=== PATIENT | female | born 1980 | race African-American/Black ===

== ENCOUNTER 2016-10-04 14:59 | Emergency (ER) | payer OTHER ==
[~2016-10-04] VITALS: Ht 160 cm; Wt 69.4 kg
--- NOTE | ~2016-10-04 | EKG ---
[place] [address] [address] [facility] [place] [address] ELECTROCARDIOGRAM REPORT Name: JADE DAVIS [facility] [id number] Admission: 10/04/16 Attend Phys: Discharge: 10/04/16 Date of : 78 Report #: [id number] THIS REPORT FOR: //name// [facility] ED Test Date: 2016-10-04 Test Time: 15:44:28 Pat Name: JADE DAVIS Department: Room: Gender: F [employer]: lisa : 1980 Requested By: Babs Infante Order Number: [id number] MD: Morteza Ogden Measurements Intervals [place] Rate: 74 P: 88 VA: 244 QRS: 58 QRSD: 92 T: 40 QT: 414 QTc: 460 Interpretive Statements Sinus rhythm Prolonged VA interval Consider left ventricular hypertrophy Compared to ECG 07/25/2016 19:45:07 First degree AV block now present T-wave abnormality no longer present Electronically Signed On 10-05-2016 8:40:32 CDT by Morteza Ogden [email or web address] <ELECTRONICALLY SIGNED> By: Morteza Ogden MD, [facility] 10/05/16 0840 1544 1544 Morteza Ogden MD, [facility] /EPI
[~2016-10-04 14:59] MED LIST: ALDOMET250 MG PO; AUGMENTIN 875875 MG PO; BENTYL 20 MG TA20 M1 PO; BENZTROPINE MESY2 MG PO; CARAFATE 11 GM/10 M1 PO; CELEXA 20 MG TA20 M1 PO; CIPROFLOXACIN250 M2 PO; COLACE 100 MG100 MG PO; COZAAR 25 MG TA25 M1 PO; COZAAR 50 MG TA50 MG PO; CYCLOBENZAPRINE; CYMBALTA20 MG PO; CYMBALTA30 MG PO; CYMBALTA60 MG; CYMBALTA60 MG PO; DESYREL150 MG; FLEXERIL PO; HALDOL 0.5 MG0.5 MG PO; HALDOL OR; HALOPERIDOL 5 MG5 MG PO; HYCET 7.5 MG-3473 ML PO; HYDROCODONE-APA1 TA1 PO; HYZAAR 100-251 EACH PO; IBUPROFEN 600600 M1 PO; IRON OR; LISINOPRIL20 MG PO; LISINOPRIL5 MG; METHADOPA; MS CONTIN 30 MG30 M1 PO; MS CONTIN15 MG PO; NEURONTIN 300M300 M2 PO; NEURONTIN600 MG PO; NORCO 5-325 TA1 EACH PO; OXYCODONE; OXYCODONE HCL10 MG; OXYCONTIN20 M1 PO; PENICILLIN V P500 MG PO; PERCOCET 10-321 EACH PO; PHENERGAN 25 MG25 M1 PO; PRENATAL OR; PROMETHAZINE HC25 M1 PO; PROPRANOLOL 1010 M1 PO; PROPRANOLOL 1010 MG PO; PROTONIX40 M1 PO; REGLAN 10 MG TA10 MG PO; TRAMADOL 50 MG50 MG PO; TRANSDERM-SCO1 PATC1 TD; TRAZODONE 150150 M1 PO; TRAZODONE HCL100 MG PO; ULTRAM 50MG TAB50 MG PO; VISTARIL 25 MG25 M1 PO; ZOFRAN ODT4 MG DISSOLVE; ZOFRAN ODT4 MG PO; ZOFRAN ODT8 MG DISSOLVE; ZYRTEC10 MG PO
[2016-10-04 15:31] LABS: ABSOLUTE NEUTROPHILS 6.5 thou/uL (1.4-8.2); BASOPHILS 0.4 % (0.0-2.0); EOSINOPHILS 0.7 % (0.0-3.0); HEMATOCRIT 36.7 % (37.0-47.0); HEMOGLOBIN 12.2 gm/dL (12.0-15.0); LYMPHOCYTES 23.1 % (24.0-44.0); MCH 30.3 pg (26.0-34.0); MCHC 33.1 g/dL (28.0-37.0); MCV 91.4 fL (80.0-100.0); PLATELET COUNT 183 thou/uL (150-400); POLYS 69.8 % (36.0-66.0); RBC 4.01 mil/uL (4.20-5.00); RDW 15.1 % (10.5-14.5); WBC 10.2 thou/uL (4.0-11.0)
[2016-10-04 15:32] LABS: MANUAL DIFF NO
[2016-10-04 15:40] LABS: CALCIUM 9.5 mg/dL (8.5-10.1); CREATININE 0.7 mg/dL (0.6-1.0); POTASSIUM 3.6 mmol/L (3.5-5.1)
[2016-10-04 15:44] LABS: ALBUMIN 3.3 g/dL (3.4-5.0); TOTAL BILIRUBIN 0.6 mg/dL (<0.1-1.0); TOTAL PROTEIN 7.3 g/dL (6.4-8.2)
[2016-10-04 16:18] LABS: URINE BILIRUBIN NEGATIVE (Negative); URINE BLOOD 1+ (Negative); URINE COLOR YELLOW; URINE GLUCOSE-RANDOM* NEGATIVE (Negative); URINE KETONES NEGATIVE (Negative); URINE LEUKOCYTES-REFLEX NEGATIVE (Negative); URINE PROTEIN (DIPSTICK) NEGATIVE (Negative); URINE UROBILINOGEN 0.2 E.U./dl (0.2-1.0)
[2016-10-04 16:22] LABS: CASTS None Seen /LPF (None Seen); CRYSTALS None Seen /LPF (None Seen); SQUAMOUS 0-3 Few /LPF (0-3); URINE RBC 0-2 Rare /HPF (0-2); URINE WBC-REFLEX 0-5 Rare /HPF (0-5)
[2016-10-04 18:00] VITALS: BP 126/79
== END 2016-10-04 18:32 | disposition home or self-care (01) ==
LOC: ER 14:59
PROVIDERS: Physician Assistant
DX: I95.1 Orthostatic hypotension (principal); E86.9 Volume depletion, unspecified; F41.9 Anxiety disorder, unspecified; F32.9 Major depressive disorder, single episode, unspecified; Z90.49 Acquired absence of other specified parts of digestive tract; F43.10 Post-traumatic stress disorder, unspecified; F17.210 Nicotine dependence, cigarettes, uncomplicated

== ENCOUNTER 2017-03-11 18:51 | Emergency (ER) | payer OTHER ==
[~2017-03-11] VITALS: Ht 160 cm; Wt 57.6 kg
[2017-03-11] MEDS ORDERED: ZANAFLEX4 MG PO (19:15)
[2017-03-11] MEDS ORDERED: NEURONTIN 300300 M1 PO (19:15)
[2017-03-11] MEDS ORDERED: PERCOCET 10-321 EACH PO (19:15)
[2017-03-11 19:42] LABS: ABSOLUTE NEUTROPHILS 5.4 thou/uL (1.4-8.2); BASOPHILS 0.8 % (0.0-2.0); EOSINOPHILS 0.7 % (0.0-3.0); HEMATOCRIT 34.9 % (37.0-47.0); HEMOGLOBIN 11.6 gm/dL (12.0-15.0); LYMPHOCYTES 34.1 % (24.0-44.0); MCH 30.3 pg (26.0-34.0); MCHC 33.3 g/dL (28.0-37.0); MONOCYTES 3.5 % (1.0-8.0); PLATELET COUNT 280 thou/uL (150-400); POLYS 60.9 % (36.0-66.0); RBC 3.83 mil/uL (4.20-5.00); RDW 15.5 % (10.5-14.5); WBC 8.9 thou/uL (4.0-11.0)
[2017-03-11 19:43] LABS: URINE BILIRUBIN 1+ (Negative); URINE BLOOD 3+ (Negative); URINE COLOR YELLOW; URINE GLUCOSE-RANDOM* NEGATIVE (Negative); URINE KETONES NEGATIVE (Negative); URINE NITRITE NEGATIVE (Negative); URINE PROTEIN (DIPSTICK) 1+ (Negative); URINE SPECIFIC GRAVITY 1.025 (1.003-1.035)
[2017-03-11 19:52] LABS: SQUAMOUS 4-10 Moderate /LPF (0-3)
[2017-03-11 19:53] LABS: BACTERIA None Seen /HPF (None Seen); CRYSTALS None Seen /LPF (None Seen); URINE RBC >20 Many /HPF (0-2); URINE WBC None Seen /HPF (0-5)
[2017-03-11 19:56] LABS: CALCIUM 9.1 mg/dL (8.5-10.1); CREATININE 0.7 mg/dL (0.6-1.0); POTASSIUM 3.8 mmol/L (3.5-5.1)
[2017-03-11 20:03] LABS: MANUAL DIFF NO
[2017-03-11] MEDS ORDERED: NAPROSYN500 MG PO (20:35)
[2017-03-11 20:40] VITALS: BP 134/87
== END 2017-03-11 20:45 | disposition home or self-care (01) ==
LOC: ER 18:51
PROVIDERS: Nurse Practitioner
DX: N94.6 Dysmenorrhea, unspecified (principal); F32.9 Major depressive disorder, single episode, unspecified; F41.9 Anxiety disorder, unspecified; I10 Essential (primary) hypertension; F43.10 Post-traumatic stress disorder, unspecified; F17.210 Nicotine dependence, cigarettes, uncomplicated; Z90.49 Acquired absence of other specified parts of digestive tract; Z98.890 Other specified postprocedural states; Z87.440 Personal history of urinary (tract) infections

== ENCOUNTER 2018-06-14 16:30 | Emergency (ER) | payer OTHER ==
[~2018-06-14] VITALS: Ht 160 cm; Wt 57.6 kg
[~2018-06-14 16:30] MED LIST changes: +KEFLEX500 M1 PO; +NAPROSYN500 MG PO; +NEURONTIN 300300 M1 PO; +ZANAFLEX4 MG PO
[2018-06-14] MEDS ORDERED: LOPRESSOR50 PO (17:04)
[2018-06-14] MEDS ORDERED: NORCO 5-325 TA1 EACH PO (18:18)
[2018-06-14] MEDS ORDERED: MOBIC7.5 MG PO (18:19)
[2018-06-14] MEDS ORDERED: LOPRESSOR25 PO (18:27)
[2018-06-14 18:35] VITALS: BP 186/100
== END 2018-06-14 18:35 | disposition home or self-care (01) ==
LOC: ER 16:30
DX: G57.11 Meralgia paresthetica, right lower limb (principal); F41.9 Anxiety disorder, unspecified; F32.9 Major depressive disorder, single episode, unspecified; I10 Essential (primary) hypertension; Z90.49 Acquired absence of other specified parts of digestive tract; Z87.442 Personal history of urinary calculi; Z98.890 Other specified postprocedural states

== ENCOUNTER 2018-12-10 20:51 | Emergency (ER) | payer OTHER ==
[~2018-12-10] VITALS: Ht 160 cm; Wt 61.2 kg
[~2018-12-10 20:51] MED LIST changes: +LOPRESSOR25 PO; +LOPRESSOR50 PO; +MOBIC7.5 MG PO
[2018-12-10] MEDS ORDERED: B12INJ IM (21:03)
[2018-12-10] MEDS ORDERED: CYMBALTA30 MG PO (21:04)
[2018-12-10] MEDS ORDERED: IRON325 PO (21:04)
[2018-12-10] MEDS ORDERED: NEURONTIN600 MG PO (21:04)
[2018-12-10] MEDS ORDERED: VITAMIN B-12500 MCG PO (21:05)
[2018-12-10] MEDS ORDERED: UNICOMPLEX M TA1 TA1 PO (21:05)
[2018-12-10] MEDS ORDERED: [UNRECOGNIZED DRUG - REMARK] (21:06)
[2018-12-10 21:42] LABS: URINE BILIRUBIN NEGATIVE (Negative); URINE BLOOD NEGATIVE (Negative); URINE CLARITY CLEAR; URINE COLOR YELLOW; URINE GLUCOSE-RANDOM* NEGATIVE (Negative); URINE KETONES NEGATIVE (Negative); URINE LEUKOCYTES-REFLEX NEGATIVE (Negative); URINE PROTEIN (DIPSTICK) NEGATIVE (Negative); URINE SPECIFIC GRAVITY 1.025 (1.005-1.035)
[2018-12-10 21:44] LABS: URINE NITRITE-REFLEX POSITIVE (Negative)
[2018-12-10 21:53] LABS: BACTERIA-REFLEX >30 Many /HPF (None Seen); CASTS None Seen /LPF (None Seen); CRYSTALS None Seen /LPF (None Seen); SQUAMOUS >10 Many /LPF (0-3); URINE RBC 0-2 Rare /HPF (0-2)
[2018-12-10] MEDS ORDERED: PYRIDIUM200 MG PO (21:58)
[2018-12-10] MEDS ORDERED: KEFLEX500 M1 PO (21:58)
[2018-12-10 22:10] VITALS: BP 157/94
[2018-12-22] MEDS ORDERED: TYLENOL EXTRA500 MG PO (01:44)
[2018-12-22] MEDS ORDERED: PRENATAL COMPL1 EACH PO (03:07)
== END 2018-12-10 22:15 | disposition home or self-care (01) ==
LOC: ER 20:51
PROVIDERS: Emergency Medicine
DX: N39.0 Urinary tract infection, site not specified (principal); I10 Essential (primary) hypertension; F41.9 Anxiety disorder, unspecified; F32.9 Major depressive disorder, single episode, unspecified; Z98.890 Other specified postprocedural states

== ENCOUNTER 2019-01-25 10:19 | Emergency (ER) | payer OTHER ==
[~2019-01-25] VITALS: Ht 157.5 cm; Wt 59.0 kg
[~2019-01-25 10:19] MED LIST changes: +B12INJ IM; +IRON325 PO; +PRENATAL COMPL1 EACH PO; +PYRIDIUM200 MG PO; +TYLENOL EXTRA500 MG PO; +UNICOMPLEX M TA1 TA1 PO; +VITAMIN B-12500 MCG PO; +[UNRECOGNIZED DRUG - REMARK]
[2019-01-25 10:56] LABS: HEMATOCRIT 33.6 % (37.0-47.0); HEMOGLOBIN 11.3 gm/dL (12.0-15.0); MCH 32.2 pg (26.0-34.0); MCHC 33.7 g/dL (28.0-37.0); MCV 95.6 fL (80.0-100.0); RBC 3.52 mil/uL (4.20-5.00); RDW 13.5 % (10.5-14.5); WBC 10.4 thou/uL (4.0-11.0)
[2019-01-25 11:04] LABS: CALCIUM 9.1 mg/dL (8.5-10.1); CREATININE 0.9 mg/dL (0.6-1.0); POTASSIUM 3.2 mmol/L (3.5-5.1)
[2019-01-25 13:01] VITALS: BP 121/79
[2019-01-25] MEDS ORDERED: NORCO 5-325 TA1 EAC1 PO (13:02)
[2019-01-25] MEDS ORDERED: ONDANSETRON HCL4 M2 PO (13:02)
== END 2019-01-25 13:10 | disposition home or self-care (01) ==
LOC: ER 10:19
PROVIDERS: Emergency Medicine
DX: O03.9 Complete or unspecified spontaneous abortion without complication (principal); F41.9 Anxiety disorder, unspecified; F32.9 Major depressive disorder, single episode, unspecified; Z98.84 Bariatric surgery status; Z87.440 Personal history of urinary (tract) infections; Z87.442 Personal history of urinary calculi; Z90.49 Acquired absence of other specified parts of digestive tract; Z98.890 Other specified postprocedural states; Z3A.01 Less than 8 weeks gestation of pregnancy

== ENCOUNTER 2019-04-19 01:47 | Emergency (ER) | payer OTHER ==
[~2019-04-19] VITALS: Ht 157.5 cm; Wt 59.0 kg
[~2019-04-19 01:47] MED LIST changes: +NORCO 5-325 TA1 EAC1 PO; +ONDANSETRON HCL4 M2 PO
[2019-04-19 02:45] LABS: ABSOLUTE NEUTROPHILS 10.6 thou/uL (1.4-8.2); BASOPHILS 0.6 % (0.0-2.0); EOSINOPHILS 0.6 % (0.0-3.0); HEMATOCRIT 30.2 % (37.0-47.0); HEMOGLOBIN 9.4 gm/dL (12.0-15.0); LYMPHOCYTES 11.4 % (24.0-44.0); MCHC 31.2 g/dL (28.0-37.0); MCV 86.6 fL (80.0-100.0); MONOCYTES 5.9 % (1.0-8.0); PLATELET COUNT 228 thou/uL (150-400); POLYS 81.5 % (36.0-66.0); RBC 3.49 mil/uL (4.20-5.00); RDW 17.7 % (10.5-14.5); WBC 13.1 thou/uL (4.0-11.0)
[2019-04-19 02:48] LABS: ANION GAP 9 mmol/L (7-16); BUN 8 mg/dL (7-18); CALCIUM 8.6 mg/dL (8.5-10.1); CHLORIDE 106 mmol/L (98-107); CO2 26 mmol/L (21-32); CREATININE 0.9 mg/dL (0.6-1.0); GLUCOSE 92 mg/dL (74-106); POTASSIUM 3.5 mmol/L (3.5-5.1); SODIUM 141 mmol/L (136-145)
[2019-04-19 03:02] LABS: ALBUMIN 3.4 g/dL (3.4-5.0); DIRECT BILIRUBIN < 0.1 mg/dL (<0.1-0.3); LIPASE 103 U/L (73-393); SGOT 17 U/L (15-37); SGPT 11 U/L (30-65); TOTAL BILIRUBIN 0.2 mg/dL (<0.1-1.0); TOTAL PROTEIN 7.3 g/dL (6.4-8.2)
[2019-04-19 03:22] LABS: URINE BILIRUBIN NEGATIVE (Negative); URINE BLOOD NEGATIVE (Negative); URINE CLARITY SL CLOUDY; URINE COLOR YELLOW; URINE GLUCOSE-RANDOM* NEGATIVE (Negative); URINE KETONES NEGATIVE (Negative); URINE LEUKOCYTES-REFLEX NEGATIVE (Negative); URINE NITRITE-REFLEX NEGATIVE (Negative); URINE PROTEIN (DIPSTICK) NEGATIVE (Negative); URINE SPECIFIC GRAVITY 1.015 (1.005-1.035); URINE UROBILINOGEN 0.2 E.U./dl (0.2-1.0)
[2019-04-19] MEDS ORDERED: BENTYL 20 MG TA20 M1 PO (05:17)
[2019-04-19 05:36] VITALS: BP 182/103
== END 2019-04-19 05:30 | disposition home or self-care (01) ==
LOC: ER 01:47
PROVIDERS: Emergency Medicine
DX: R10.84 Generalized abdominal pain (principal); I10 Essential (primary) hypertension; F41.9 Anxiety disorder, unspecified; F32.9 Major depressive disorder, single episode, unspecified; Z98.890 Other specified postprocedural states; Z90.49 Acquired absence of other specified parts of digestive tract; Z87.440 Personal history of urinary (tract) infections

== ENCOUNTER 2019-05-03 01:41 | Emergency (ER) | payer OTHER ==
[~2019-05-03] VITALS: Ht 162.6 cm; Wt 61.2 kg
[2019-05-03 02:28] LABS: URINE BILIRUBIN NEGATIVE (Negative); URINE BLOOD NEGATIVE (Negative); URINE CLARITY CLEAR; URINE COLOR YELLOW; URINE GLUCOSE-RANDOM* NEGATIVE (Negative); URINE KETONES NEGATIVE (Negative); URINE LEUKOCYTES-REFLEX NEGATIVE (Negative); URINE NITRITE-REFLEX NEGATIVE (Negative); URINE PROTEIN (DIPSTICK) NEGATIVE (Negative); URINE UROBILINOGEN 0.2 E.U./dl (0.2-1.0)
[2019-05-03 02:54] LABS: CALCIUM 9.3 mg/dL (8.5-10.1); CREATININE 0.7 mg/dL (0.6-1.0); POTASSIUM 3.6 mmol/L (3.5-5.1)
[2019-05-03 02:59] LABS: ALBUMIN 3.8 g/dL (3.4-5.0); TOTAL BILIRUBIN 0.5 mg/dL (<0.1-1.0); TOTAL PROTEIN 8.4 g/dL (6.4-8.2)
[2019-05-03 03:11] LABS: ABSOLUTE NEUTROPHILS 6.2 thou/uL (1.4-8.2); BASOPHILS 0.7 % (0.0-2.0); EOSINOPHILS 0.2 % (0.0-3.0); HEMATOCRIT 33.5 % (37.0-47.0); HEMOGLOBIN 10.7 gm/dL (12.0-15.0); LYMPHOCYTES 14.5 % (24.0-44.0); MCH 26.8 pg (26.0-34.0); MCHC 31.8 g/dL (28.0-37.0); MCV 84.1 fL (80.0-100.0); MONOCYTES 3.5 % (1.0-8.0); PLATELET COUNT 312 thou/uL (150-400); POLYS 81.1 % (36.0-66.0); RBC 3.99 mil/uL (4.20-5.00); RDW 18.3 % (10.5-14.5); WBC 7.6 thou/uL (4.0-11.0)
[2019-05-03] MEDS ORDERED: PROTONIX40 MG PO (04:35)
[2019-05-03] MEDS ORDERED: ZOFRAN ODT4 MG PO (04:35)
[2019-05-03 04:55] VITALS: BP 178/80
== END 2019-05-03 04:55 | disposition home or self-care (01) ==
LOC: ER 01:41
PROVIDERS: Emergency Medicine
DX: R10.84 Generalized abdominal pain (principal); R10.13 Epigastric pain; R11.2 Nausea with vomiting, unspecified; I10 Essential (primary) hypertension; F41.9 Anxiety disorder, unspecified; Z90.49 Acquired absence of other specified parts of digestive tract; Z98.84 Bariatric surgery status; Z98.890 Other specified postprocedural states

== ENCOUNTER 2021-07-15 11:55 | Emergency (ER) | payer OTHER ==
[~2021-07-15] VITALS: Ht 160 cm; Wt 59.9 kg
[~2021-07-15 11:55] MED LIST changes: +OXYCODONE HCL 55 MG PO; +PROTONIX40 MG PO; +SENNA PLUS TAB1 EACH PO
[2021-07-15 13:26] LABS: BASOPHILS 0.8 % (0.0-2.0); EOSINOPHILS 0.7 % (0.0-3.0); HEMATOCRIT 35.3 % (37.0-47.0); HEMOGLOBIN 11.2 gm/dL (12.0-15.0); LYMPHOCYTES 19.2 % (24.0-44.0); MCH 27.6 pg (26.0-34.0); MCHC 31.8 g/dL (28.0-37.0); MCV 86.9 fL (80.0-100.0); MONOCYTES 5.1 % (1.0-8.0); PLATELET COUNT 293 thou/uL (150-400); POLYS 74.2 % (36.0-66.0); RBC 4.06 mil/uL (4.20-5.00); RDW 16.1 % (10.5-14.5); WBC 6.8 thou/uL (4.0-11.0)
[2021-07-15 13:40] LABS: CALCIUM 8.9 mg/dL (8.5-10.1); CREATININE 0.8 mg/dL (0.6-1.0); POTASSIUM 4.1 mmol/L (3.5-5.1)
[2021-07-15 13:49] LABS: ALBUMIN 3.5 g/dL (3.4-5.0); TOTAL BILIRUBIN 0.7 mg/dL (0.2-1.0); TOTAL PROTEIN 7.1 g/dL (6.4-8.2)
[2021-07-15 15:12] VITALS: BP 169/90
--- NOTE | 2021-07-15 20:40 | EKG ---
[place] [address] [facility] [place] [address] ELECTROCARDIOGRAM REPORT Name: JADE DAVIS Room #: [facility] Anne#: [id number] Admission: 07/15/21 Attend Phys: Discharge: 07/15/21 Date of : [birth year] Report #: [id number] [facility] ED Test Date: 2021-07-15 Test Time: 13:26:51 Pat Name: JADE DAVIS Department: Room: Gender: F [employer] Worker: mallory : 1980 Requested By: Nohemy Mcmahan Order Number: [id number] MD: Morteza Ogden Measurements Intervals [place] Rate: 76 P: 33 MA: 174 QRS: 59 QRSD: 82 T: 36 QT: 357 QTc: 402 Interpretive Statements Sinus rhythm Borderline T wave abnormalities Compared to ECG 10/04/2016 15:44:28 T-wave abnormality now present First degree AV block no longer present Electronically Signed On 07-15-2021 20:40:01 [employer] by Morteza Ogden [email or web address] <ELECTRONICALLY SIGNED> By: Morteza Ogden MD, [facility] 07/15/212039 1326 1326 Morteza Ogden MD, [facility] /EPI
== END 2021-07-15 15:12 | disposition home or self-care (01) ==
LOC: ER 11:55
PROVIDERS: Nurse Practitioner
DX: I10 Essential (primary) hypertension (principal); F41.9 Anxiety disorder, unspecified; F32.9 Major depressive disorder, single episode, unspecified; Z98.890 Other specified postprocedural states; Z90.49 Acquired absence of other specified parts of digestive tract; Z87.442 Personal history of urinary calculi; Z79.891 Long term (current) use of opiate analgesic; Z79.1 Long term (current) use of non-steroidal anti-inflammatories (NSAID); Z79.899 Other long term (current) drug therapy